=== PATIENT | male | born 1970 | race Two or more races ===

== ENCOUNTER 2018-11-10 12:32 | Emergency (ER) | payer MEDICAID, OTHER ==
[~2018-11-10] VITALS: Ht 165.1 cm; Wt 68.5 kg
[2018-11-10] MEDS ORDERED: lisinopril (12:37)
[2018-11-10] MEDS ORDERED: IBUPROFEN 600MG TABLET PO ONE (13:00)
[2018-11-10] MEDS ORDERED: TRAMADOL 50MG TABLET PO ONE (13:00)
[2018-11-10 14:12] VITALS: BP 125/81
== END 2018-11-10 14:13 | disposition home or self-care (01) ==
LOC: ER 12:32
DX: S30.0XXA Contusion of lower back and pelvis, initial encounter (principal); M51.36 Other intervertebral disc degeneration, lumbar region; E11.9 Type 2 diabetes mellitus without complications; I10 Essential (primary) hypertension; W18.39XA Other fall on same level, initial encounter; Y93.89 Activity, other specified; Y92.89 Other specified places as the place of occurrence of the external cause; Y99.8 Other external cause status; Z90.49 Acquired absence of other specified parts of digestive tract; Z90.89 Acquired absence of other organs; Z98.890 Other specified postprocedural states
CPT/HCPCS: 72100; 99283